=== PATIENT | female | born 1995 | race American Indian/Alaskan Native ===

== ENCOUNTER 2022-01-04 11:43 | Emergency (ER) | payer SELFPAY | END 2022-01-04 12:34 | disposition left against medical advice (07) | LOC: ED 11:43 | DX: Z00.00 Encounter for general adult medical examination without abnormal findings (principal); Z48.00 Encounter for change or removal of nonsurgical wound dressing; Z53.21 Procedure and treatment not carried out due to patient leaving prior to being seen by health care provider ==